=== PATIENT | female | born 1995 | race Caucasian/White ===

== ENCOUNTER 2019-03-28 08:16 | Emergency (ER) | payer MEDICAID ==
[~2019-03-28] VITALS: Ht 162.6 cm; Wt 67.6 kg
[2019-03-28 08:20] VITALS: BP_SYST 129
--- NOTE | 2019-03-28 08:24 | NUR ---
Patient to ER bed 8 to gown for evaluation. Side rails up. Report given to Barbara ARAMBULA.
--- NOTE | 2019-03-28 08:27 | NUR ---
PATIENT CAME IN COMPLAINING OF SORE THROAT SINCE WEDNESDAY. PATIENT COMPLAINING OF 7/10 PAIN. PATIENT DENIES COUGH AND SOB. PATIENT SMOKES CIGARETTS. PATIENT'S THROAT SWOLLEN. PATIENT DENIES NAUSEA AND VOMITING. PATIENT ALERT AND ORIENTED X4.
--- NOTE | 2019-03-28 08:28 | NUR ---
ER Dr. Durbin at bedside examining patient.
--- NOTE | 2019-03-28 08:39 | NUR ---
Patient given written and verbal discharge instructions and verbalizes understanding. ER MD discussed with patient the results and treatment provided. Patient in stable condition. ID arm band removed. Rx of ACETAMINOPHEN, NAPROSYN, AND AMOXICILLIN given. Patient educated on pain management and to follow up with PMD. Pain Scale 7/10 TOLERABLE AND SENT WITH PAIN MEDS. Opportunity for questions provided and answered. Medication side effect fact sheet provided.
[2019-03-28 08:40] VITALS: BP_SYST 129
== END 2019-03-28 08:39 | disposition home or self-care (01) ==
LOC: SED 08:16
DX: J02.9 Acute pharyngitis, unspecified (principal)
CPT/HCPCS: 99283